=== PATIENT | female | born 1980 | race Caucasian/White ===

== ENCOUNTER → 2016-06-29 | Outpatient (CLI) | payer BC ==
[~2016-06-29] MED LIST: ASCO10003 PO; COLE1TAB4 PO; PRENTAB26 PO
== END | disposition home or self-care (01) ==
LOC: C.PAPS 08:11
PROVIDERS: ATTEND Obstetrics & Gynecology
DX: Z01.419 Encounter for gynecological examination (general) (routine) without abnormal findings (principal)

== ENCOUNTER → 2017-07-29 | Outpatient (CLI) | payer BC | END | disposition home or self-care (01) | LOC: C.PAPS 11:25 | PROVIDERS: ATTEND Obstetrics & Gynecology | DX: Z01.419 Encounter for gynecological examination (general) (routine) without abnormal findings (principal) ==

== ENCOUNTER 2018-11-14 22:42 | Inpatient (IN) ==
[2018-11-15] MEDS ORDERED: OXYTOCIN 30 UNITS/500 ML BAG IV PRN (01:58)
--- NOTE | 2018-11-15 02:02 | Labor Progress Brief Note ---
Date of Service November 15, 2018 Subjective Reason For Note: Routine Evaluation Breathing through Contractions Assessment & Plan (1) Leakage, amniotic fluid: Patient with painful contractions, cervical change, and SROM confirmed by MD exam. Admit for labor. See recent OB notes, patient NOT considered cHTN. Present on Admission?: Yes Physical Exam Genitourinary: Manual OB Exam: + cervical dilation 4 cm, + cervical effacement 90%, + station -2 and + amniotic fluid clear OB Exam Monitor Tracing: + external FHT monitor used, + external uterine monitor used and + category I Results & Data Vital Signs (Past 12 Hours) Vital Signs Temp Pulse Resp BP 11/15/18 01:55 87 135/81 11/14/18 22:59 98.4 F 96 H 18 151/82 H 11/14/18 22:58 98.4 F 97 H 18 157/91 H
[2018-11-15] MEDS: LACTATED RINGER'S 1,000 ML IV PRN ×2 (02:04→03:06)
[2018-11-15] MEDS ORDERED: ePHEDrine sulfate 50 MG/ML AMP ONE (02:12)
[2018-11-15] MEDS ORDERED: BUPIVACAINE 0.25% 30 ML VIAL ONE (02:12)
[2018-11-15] MEDS ORDERED: fentaNYL citrate 100 MCG/2 ML VIAL ONE (02:13)
[2018-11-15] MEDS ORDERED: fentaNYL 2MCG/ML ROPIV 1.25MG/ML 100 ML BAG EPI ONE (02:14)
[2018-11-15 02:32] LABS: Hematocrit (blood only) 37.6 % (37-47); Hemoglobin 12.8 g/dL (12.0-16.0); Mean Corpuscular Volume 89.1 fL (80-100); Mean Platelet Volume 12.9 fL (7.4-10.4); Platelet Count 141 K/uL (130-400); RDW Coefficient of Variation 13.2 % (11.5-14.5); Red Blood Count 4.22 M/uL (4.2-5.4); White Blood Count 13.25 K/uL (4.8-10.8)
[2018-11-15] MEDS ORDERED: ONDANSETRON INJ 2 MG/ML 2 ML VIAL IV PRN (02:42)
[2018-11-15] MEDS ORDERED: NALOXONE HCL 1 MG in SODIUM CHLORIDE 0.9% 1000ML 1,000 ML IV PRN (02:42)
[2018-11-15] MEDS ORDERED: NALBUPHINE HCL INJ 10 MG/ML AMP IV PRN (02:42)
[2018-11-15] MEDS ORDERED: DiphenhydrAMINE HCL 50 MG/ML VIAL IV PRN (02:42)
[2018-11-15] MEDS ORDERED: ePHEDrine sulfate 50 MG/ML AMP IV PRN (02:42)
[2018-11-15] MEDS ORDERED: NALOXONE HCL 0.4 MG/1 ML VIAL/CARP IV PRN (02:42)
[2018-11-15] MEDS ORDERED: fentaNYL 2MCG/ML ROPIV 1.25MG/ML 100 ML BAG EPI PRN (02:42)
--- NOTE | 2018-11-15 02:45 | Anesthesiology Consultation ---
Date of Service November 15, 2018 Assessment & Plan Chart Review Chart Review: Patient NOT seen in Pre Admission Testing and Acceptable Risk for Labor Epidural Consults Requested none ASA ASA2 Proposed Anesthesia Anesthesia Type: Labor Epidural and CSE Risk / Benefits Reviewed With: PT / POA / Parent / Guardian, Accepts Plan and Informed Consent Obtained History Height/Weight Height: 5 ft 3 in Weight: 103.419 kg Allergies Allergy/AdvReac Type Severity Reaction Status Date / Time No Known Drug Allergies Allergy Verified 11/13/18 14:54 Medications Home Medications Medication Instructions Recorded Confirmed Last Taken ascorbic acid (vitamin C) 1,000 mg 1 gm PO Q6H 11/06/18 11/14/18 11/14/18 tablet aspirin 81 mg tablet,delayed 81 mg PO DAILY 11/06/18 11/14/18 11/14/18 release buspirone 5 mg tablet 5 mg PO BID 11/06/18 11/14/18 11/14/18 colestipol 1 gram tablet 1 gm PO BID 11/06/18 11/14/18 11/13/18 1 tab PO DAILY 11/06/18 11/14/18 11/14/18 vitamin,calcium,zgktming-hops-ljlli acid tablet sertraline 50 mg tablet 50 mg PO DAILY 11/06/18 11/14/18 11/14/18 Active Medications Generic Name Dose Route Start Last Admin Trade Name Freq PRN Reason Stop Dose Admin Lactated Ringer's 1,000 mls @ 125 mls/hr 11/15/18 01:58 11/15/18 02:04 Lr IV 11/17/18 01:57 999 mls/hr .Q8H PRN Administration L&D Protocol Protocol NPO Date Last Intake of Fluids: 11/15/18 Time Last Intake of Fluids: 01:00 Date Last Intake of Solids: 11/14/18 Time Last Intake of Solids: 19:00 Past Medical History Medical History Functional murmur History of pleurisy History of syncope Exercise / Class Metabolic Activity II 4-5 Yardwork/Stairs/Walk up hill Past Family History Family History Mother Hypertension Father Benign neoplasm of brain Other Depression Dyslipidemia Kidney disease Past Surgical History Surgical History History of colposcopy History of dental surgery Past Anesthesia History No Hx of Anesthesia Complications and No Family Hx of Anesthesia Complications History of PONV No Hx of PONV and No Hx of Motion Sickness Social History Smoking Status: Never smoker Hx Alcohol Use: No Hx Substance Use: No Review of Systems no chest pain or sob Physical Exam Vital Signs Last Vital Signs Temp 36.4 C L 11/15/18 02:30 Pulse 87 11/15/18 01:55 Resp 18 11/15/18 02:30 BP 135/81 11/15/18 01:55 ENMT Mouth: no TMJ abnormality Thyromental Distance: > or= 3.5 Finger Breadths Mallampati Class: II Neck normal visual inspection Respiratory normal respiratory effort Auscultation: lungs clear to auscultation bilaterally Cardiovascular Rate/Rhythm: regular rate and regular rhythm Musculoskeletal Spine: normal cervical ROM Neurologic moves all extremities Psychiatric Orientation: alert and oriented x 3 Testing Laboratory Results 11/15/18 02:21
[2018-11-15] MEDS ORDERED: DIPHTHERIA/TETANUS/PERTUSSIS 0.5 ML SYR/VIAL IM ONE (05:19)
[2018-11-15] MEDS ORDERED: SUPERCREAM 0.870% 15 GM JAR EXT PRN (05:19)
[2018-11-15] MEDS ORDERED: HYDROCORTISONE ACETATE 25 MG SUPP PR PRN (05:19)
[2018-11-15] MEDS ORDERED: BENZOCAINE 20% AER SPR 82.5 GM CAN EXT PRN (05:19)
[2018-11-15] MEDS ORDERED: IBUPROFEN 600 MG TAB PO ONE (05:26)
--- NOTE | 2018-11-15 06:40 | History & Physical Report ---
Date of Service November 15, 2018 Assessment & Plan (1) : (2) Spontaneous rupture of membranes: patient with SROM and regular contractions occurring 1-3 minutes apart; at 4cm dilation. EFM in place. anesthesia consulted, epidural placed. Anticipate . History of Present Illness Primary Care Provider: Carlota Leonardo PA-C Marlen is a 37 yo at 38w 5d dating parameters (via LMP) who presented to l&d for spontaneous rupture of membranes. This is complicated by advanced maternal age and LGA of the fetus. There was also a question of cHTN, which was felt to be likely not valid. Marlen has been attending her OB appointments with [facility]. During this , she took a vitamin, sertraline, buspar, and a daily baby ASA (for the questionable cHTN). + Contractions + Movement. +fluid loss. - Vaginal blood loss. Labs - Blood type: AB + - Antibody screen: - - H.9 - Hct: 40.0 - Plt: 264 - Rubella: immune - VDRL/RPR: non-reactive - Gonorrhea: - - Chlamydia: - - HIV: - - HbSAg: - - GBS: - - Glucose tolerance x 2: wnl Allergies Allergy/AdvReac Type Severity Reaction Status Date / Time No Known Drug Allergies Allergy Verified 11/13/18 14:54 Home Medications Home Medications Medication Instructions Recorded Confirmed Type ascorbic acid (vitamin C) 1,000 mg 1 gm PO Q6H 11/06/18 11/14/18 History tablet aspirin 81 mg tablet,delayed 81 mg PO DAILY 11/06/18 11/14/18 History release buspirone 5 mg tablet 5 mg PO BID 11/06/18 11/14/18 History colestipol 1 gram tablet 1 gm PO BID 11/06/18 11/14/18 History 1 tab PO DAILY 11/06/18 11/14/18 History vitamin,calcium,saegvndy-ihsu-zqsel acid tablet sertraline 50 mg tablet 50 mg PO DAILY 11/06/18 11/14/18 History Patient History Medical History Functional murmur History of pleurisy History of syncope Surgical History History of colposcopy History of dental surgery Family History Mother Hypertension Father Benign neoplasm of brain Other Depression Dyslipidemia Kidney disease Social History Preferred Language: Azeri Communication Ability: Effective Press Supervisor Required: No Beliefs That Will Affect Care: None marital status: Current Living Situation: Family Other Information That Helps Us Care for You: No Feels Safe at Home: Yes Safety Concerns: Feels Safe At This Time Smoking Status: Never smoker Second Hand Exposure: No ; Hx Alcohol Use: No Hx Substance Use: No Review of Systems HEENT: No headache or blurry vision CV: No chest pain Lungs: No SOB or cough GI: No abdominal pain, constipation/diarrhea, nausea/vomiting : No dysuria or burning with urination Physical Exam Physical Exam: General: Alert, oriented. No acute distress. Cardiac: Regular rate and rhythm, S1 and S2 appreciated. No murmurs/rubs/gallops. Respiratory: Clear to auscultation anterior and posteriorly, no wheezes/rales/rhonchi/crackles. No accessory muscle use. Symmetrical chest rise. Abdomen: Soft, nontender, nondistended. Normoactive bowel sounds throughout. Uterus: gravid Cervical exam [4 cm, 90% effacement, -2 station] Lower Extremities: No lower extremity edema. No calf pain on compression. Results & Data Vital Signs (Past 12 Hours) Vital Signs Temp Pulse Resp BP Pulse Ox 11/15/18 06:32 94 H 126/74 11/15/18 06:25 36.9 C 18 11/15/18 06:17 93 H 124/73 11/15/18 05:55 18 11/15/18 05:47 92 H 143/68 H 11/15/18 05:40 18 11/15/18 05:32 92 H 143/69 H 11/15/18 05:29 94 H 168/79 H 11/15/18 05:25 18 11/15/18 05:17 98 H 167/78 H 11/15/18 05:10 18 11/15/18 05:09 99 H 166/68 H 11/15/18 05:02 102 H 170/78 H 11/15/18 04:55 36.8 C 18 11/15/18 04:47 101 H 161/96 H 11/15/18 04:30 136 H 18 99 11/15/18 04:25 121 H 98 11/15/18 04:20 119 H 98 11/15/18 04:17 126 H 124/84 11/15/18 04:15 128 H 96 11/15/18 04:10 122 H 99 11/15/18 04:05 121 H 98 11/15/18 04:02 127 H 133/78 11/15/18 04:00 124 H 18 99 11/15/18 03:55 124 H 99 11/15/18 03:50 114 H 98 11/15/18 03:45 116 H 18 99 11/15/18 03:44 113 H 133/60 11/15/18 03:40 110 H 98 11/15/18 03:37 115 H 115/50 L 11/15/18 03:35 119 H 100 11/15/18 03:32 117 H 106/52 L 11/15/18 03:30 120 H 18 99 11/15/18 03:27 110 H 119/54 L 11/15/18 03:25 114 H 18 99 11/15/18 03:22 107 H 109/56 L 11/15/18 03:20 114 H 18 103/56 L 98 11/15/18 03:15 112 H 18 97 11/15/18 03:13 111 H 94 11/15/18 03:12 112 H 93/55 L 11/15/18 03:10 103 H 18 96 11/15/18 03:07 18 11/15/18 03:05 112 H 18 92 11/15/18 03:04 111 H 92 11/15/18 03:02 18 11/15/18 03:01 99 H 128/66 11/15/18 03:00 102 H 18 99 11/15/18 02:59 92 H 132/67 11/15/18 02:56 93 H 133/72 11/15/18 02:55 91 H 99 11/15/18 02:50 89 100 11/15/18 02:45 83 99 11/15/18 02:30 36.4 C L 18 11/15/18 02:00 18 11/15/18 01:55 87 135/81 11/14/18 22:59 36.9 C 96 H 18 151/82 H 11/14/18 22:58 36.9 C 97 H 18 157/91 H Code Status & VTE Plan VTE Prophylaxis Plan VTE Prophylaxis will be ordered: Yes Monitoring External Monitor [moderate variability, accels: 15X15, decels: some variable, baseline HR 155] Tocodynamometer contractions 1-3 min apart Supervising Physician Co-Signing Physician Notes I have reviewed the resident's note and examined the patient myself, and agree with the note above. Resident Activity Tracking Resident Involvement: Resident Care Provided Care Provided: Adult Hospital Medicine
--- NOTE | 2018-11-15 07:13 | Anesthesia Procedure Note ---
Date of Service November 15, 2018 Anesthesia Post Epidural Note Vital Signs Vital Signs: Temp Pulse Resp BP Pulse Ox 36.9 C 96 H 18 125/61 99 11/15/18 06:25 11/15/18 07:00 11/15/18 06:55 11/15/18 07:00 11/15/18 04:30 Pain Intensity Vaginal: Pain Intensity: 5 Notes Mental Status: alert / awake / arousable and participated in evaluation Nausea / Vomiting: adequately controlled Pain: adequately controlled Airway Patency, RR, SpO2: stable & adequate BP & HR: stable & adequate Hydration State: stable & adequate Neuraxial Anesthesia: was administered and sensory block is resolving Anesthetic Complications: no major complications apparent and Pt Satisfied with anesthetic care Epidural: Removed without complications and With tip intact Notes: Epidural site clean, dry and intact. No signs of edema, erythema or bruising at insertion site. Pt instructed to request anesthesia if she has residual lower extremity numbness or if she develops lower extremity pain or weakness, back pain or headache.
[2018-11-15] MEDS: PRENATAL VITAMIN 1 TAB PO SCH (07:40)
[2018-11-15] MEDS: DOCUSATE SODIUM 100 MG CAP PO SCH ×2 (07:40→20:29)
--- NOTE | 2018-11-15 08:02 | Delivery Summary ---
Vaginal Delivery Summary Date of Service November 15, 2018 Vaginal Delivery Summary DIAGNOSES: 1. Will intrauterine at 39wk gestation. 2. Spontaneous onset of labor. 3. Group B Streptococcus Neg. PROCEDURE: Spontaneous vaginal delivery, removal of 3cm protuberant cyst at hymenal ring. SURGEON: Kell Leung MD. SERVICE OBSERVER CHIEF: None. ESTIMATED BLOOD LOSS: 350 mL. COMPLICATIONS: None. PLACENTA: Spontaneous and intact with a 3-vessel cord. DISPOSITION: Stable to labor and delivery. DESCRIPTION: The patient pushed well and brought the head to in JOE position. The head delivered with several additional pushes, and I notified the nurse that I anticipated a possible dystocia. Help was summoned. Upon complete delivery of the head, There was no nuchal cord. The right shoulder was anterior. Deborah, Suprapubic pressure, and multiple maternal pushing efforts were required to effect delivery of the shoulders. The infant was placed on the maternal abdomen. The cord was doubly clamped by the MD and then cut by the FOB. The infant was moved directly to the warmer for care; see nursery documentation for details. The placenta delivered spontaneously and was noted to be intact and with a 3VC. The cervix, vagina and perineum were examined and were found to be without defect requiring repair. There was a known 3cm cyst filled with a yellowish substance which was sharply excised and sent for pathology; the area at 6 oclock where it was attached was then closed with a 3-0 vicryl suture for hemostasis. The fundus was firm and lochia minimal immediately after delivery.
[2018-11-15] MEDS: SERTRALINE HCL 50 MG TABLET PO SCH (08:38)
[2018-11-15] MEDS: IBUPROFEN 600 MG TAB PO PRN ×3 (11:33→20:30)
[2018-11-15] MEDS: ACETAMINOPHEN 325 MG TAB PO PRN ×2 (13:41→21:44)
[2018-11-15] MEDS ORDERED: ONDANSETRON 4 MG OD TAB PO STA (20:19)
[2018-11-15] MEDS ORDERED: ONDANSETRON 4 MG TAB PO ONE (20:20)
[2018-11-16] MEDS: IBUPROFEN 600 MG TAB PO PRN ×4 (04:06→22:59)
--- NOTE | 2018-11-16 06:19 | Obstetrical Progress Note ---
Date of Service <Kristen Garcia MD - Last Filed: 11/16/18 07:28> November 16, 2018 Assessment & Plan <Kristen Garcia MD - Last Filed: 11/16/18 07:28> (1) : (2) Spontaneous rupture of membranes: (3) Status post vaginal delivery: Marlen is a 37 yo on PPD 1 of - GBS -, Rh +, Rubella immune -Vitals reviewed: BP as high as 161/94 overnight, down to 136/79 now. will continue to monitor -Hemoglobin reviewed: 12.8 on admission, 11.5 today -patient is clinically improving but in a good deal of discomfort. We will continue to closely monitor her blood pressures today. ROS and exam not suggestive of pre-eclampsia at this time. encourage ambulation, provide analgesia as needed, monitor lochia - After discharge will have [address] Leung_. Subjective <Kristen Garcia MD - Last Filed: 11/16/18 07:28> Ambulation: ambulating normally Voiding: no voiding problems Passing Gas:: Yes Diet Tolerance:: regular diet Lochia:: Moderate Feeding Type:: bottle feeding Current Pain Level(1-10): 6 examined at bedside; experiences chills prior to transitioning positions (supine to sitting); most pain is located in R pelvic region. Denies vision changes and headaches. Physical Exam <Kristen Garcia MD - Last Filed: 11/16/18 07:28> General Appearance: Alert, oriented. No acute distress. Cardiac: Regular rate and rhythm, S1 and S2 appreciated. systolic ejection murmur 2/6 appreciated in aortic area. Respiratory: Clear to auscultation anterior and posteriorly, no wheezes/rales/rhonchi/crackles. No accessory muscle use. Symmetrical chest rise. Abdomen: Soft, nontender, nondistended. Normoactive bowel sounds throughout. Uterus: Uterine fundus firm, palpable 1 cm below umbilicus. Lower Extremities: No lower extremity edema. No calf pain on compression. Neuro: Patellar Reflexes +2 and symmetric bilaterally; no clonus (performed by attending). Results & Data <Kristen Garcia MD - Last Filed: 11/16/18 07:28> Vital Signs (Past 12 Hours) Vital Signs Temp Pulse Resp BP Pulse Ox 11/16/18 03:50 37.4 C 104 H 18 136/79 98 11/16/18 00:05 36.6 C 95 H 16 111/74 97 <Jessica Hills MD, FACOG - Last Filed: 11/16/18 07:47> Co-Signing Physician Notes Resident Physician Supervision Note: I interviewed and examined the patient. Discussed with Dr. Garcia and agree with findings and plan as documented in the note. Any exceptions or clarifications are listed here: Elevated pressures noted, no s/s of pet. Will need to monitor throughout the day. Suspect her rlq discomfort is secondary to manipulation for resolution of shoulder dystocia. Documented By: Jessica Hills MD, FACOG Resident Activity Tracking <Kristen Garcia MD - Last Filed: 11/16/18 07:28> Resident Involvement: Resident Care Provided Care Provided: Adult Hospital Medicine
[2018-11-16 06:56] LABS: Hematocrit (blood only) 33.6 % (37-47); Hemoglobin 11.5 g/dL (12.0-16.0); Mean Corpuscular Hgb Conc 34.2 g/dL (32-36); Mean Corpuscular Volume 90.1 fL (80-100); Mean Platelet Volume 12.9 fL (7.4-10.4); Platelet Count 90 K/uL (130-400); RDW Coefficient of Variation 13.5 % (11.5-14.5); RDW Standard Deviation 44.6 fL (36.4-46.3); Red Blood Count 3.73 M/uL (4.2-5.4); White Blood Count 13.86 K/uL (4.8-10.8)
[2018-11-16 06:57] LABS: Platelet Estimate Decreased (Normal)
[2018-11-16] MEDS: PRENATAL VITAMIN 1 TAB PO SCH (08:17)
[2018-11-16] MEDS: OXYCODONE/ACETAMINOPHEN 5mg/325mg TAB PO PRN ×3 (08:17→22:59)
[2018-11-16] MEDS: SERTRALINE HCL 50 MG TABLET PO SCH (08:18)
[2018-11-16] MEDS: DOCUSATE SODIUM 100 MG CAP PO SCH ×2 (08:18→20:24)
[2018-11-17 06:36] LABS: Hematocrit (blood only) 38.3 % (37-47); Mean Corpuscular Hgb Conc 33.9 g/dL (32-36); Mean Corpuscular Volume 91.6 fL (80-100); Mean Platelet Volume 12.8 fL (7.4-10.4); Platelet Count 110 K/uL (130-400); RDW Coefficient of Variation 13.8 % (11.5-14.5); RDW Standard Deviation 45.3 fL (36.4-46.3); Red Blood Count 4.18 M/uL (4.2-5.4); White Blood Count 9.59 K/uL (4.8-10.8)
--- NOTE | 2018-11-17 06:44 | Obstetrical Progress Note ---
Date of Service <Kristen Garcia MD - Last Filed: 11/17/18 07:18> November 17, 2018 Assessment & Plan <Kristen Garcia MD - Last Filed: 11/17/18 07:18> (1) Status post vaginal delivery: Marlen is a 37 yo on PPD 2 of - GBS -, Rh +, Rubella immune -Vitals reviewed: BP improved to 102/68; no hypertensive readings overnight -patient is afebrile; WBC count 9.59 today -patient is clinically improving but in a good deal of discomfort. It appears as though patient's BP has lowered to a normal range. She did experience a OLIVAREZ last night but it resolved with sleep. She complains of RLQ pain worsened by movement, although this is not reproducible on exam. This likely corresponds to suprapubic pressure that was applied during delivery complicated by shoulder dystocia. Given normalization of BPs, suspicion for pre-eclampsia is low at this time. Given patient is afebrile and WBC WNL, chills/sweats likely represent hormonal flucutuations. discharge instructions reviewed. Patient encouraged to schedule appointment for BP check in office 1 week from today. - After discharge will have [address] Leung_. Subjective <Kristen Garcia MD - Last Filed: 11/17/18 07:18> Ambulation: ambulating normally (at times requires assistance with stability when she gets shaky ) Voiding: no voiding problems (patient describes discomfort as bladder empties when she urinates) Passing Gas:: Yes Diet Tolerance:: regular diet Lochia:: Moderate Feeding Type:: bottle feeding Current Pain Level(1-10): 2 examined at bedside; reports a OLIVAREZ overnight that resolved with sleep; denies blurry vision; complains of feeling chilly followed by sweats; note that room temperature is cool Physical Exam <Kristen Garcia MD - Last Filed: 11/17/18 07:18> General Appearance: Alert, oriented. bilateral upper and lower extremity shaking Cardiac: Regular rate and rhythm, S1 and S2 appreciated. +1/6 systolic ejection murmur appreciated in aortic area Respiratory: Clear to auscultation anterior and posteriorly, no wheezes/rales/rhonchi/crackles. No accessory muscle use. Symmetrical chest rise. Abdomen: soft; non-tender. Normoactive bowel sounds throughout. Uterus: Uterine fundus firm, palpable 1 cm below umbilicus. Lower Extremities: No lower extremity edema. No calf pain on compression. Results & Data <Kristen Garcia MD - Last Filed: 11/17/18 07:18> Vital Signs (Past 12 Hours) Vital Signs Temp Pulse Resp BP Pulse Ox 11/17/18 03:17 36.5 C 81 16 102/68 97 11/16/18 23:03 37.2 C 95 H 18 103/68 98 11/16/18 20:02 37.1 C 98 H 18 111/74 97 <Poornima Lara MD, FACOG - Last Filed: 11/17/18 07:34> Co-Signing Physician Notes Resident Physician Supervision Note: I was present with Dr. Garcia during the history and exam. I discussed the case with the resident and agree with the findings and plan as documented in the note. Any exceptions or clarifications are listed here: pt will some musculoskel pain on right side, hurts with moving. she did have shoulder dystocia. eating, drinking, jesenia po, voiding. no cp/sob/n/v. no bleeding issues. wbc resolved to nl this am. i do not see fever. she notes chills on and off but resolve spont. ok for d/c home. rec bp check in one wk. routine instructions reviewed. f/u routine 6wk check up as well. Documented By: Poornima Lara MD, FACOG Resident Activity Tracking <Kristen Garcia MD - Last Filed: 11/17/18 07:18> Resident Involvement: Resident Care Provided Care Provided: OB Delivery
[2018-11-17 07:01] LABS: Basophils # (auto) 0.01 K/uL (0-0.2); Basophils % (auto) 0.1 %; Echinocytes 3+; Eosinophils # (auto) 0.04 K/uL (0-0.5); Eosinophils % (auto) 0.4 %; Immature Granulocytes # (auto) 0.06 K/uL (0.00-0.02); Immature Granulocytes % (auto) 0.6 %; Lymphocytes % (auto) 4.2 %; Monocytes # (auto) 0.27 K/uL (0.11-0.59); Monocytes % (auto) 2.8 %; Neutrophils # (auto) 8.81 K/uL (1.4-6.5); Neutrophils % (auto) 91.9 %
[2018-11-17] MEDS: OXYCODONE/ACETAMINOPHEN 5mg/325mg TAB PO PRN ×3 (08:03→18:30)
[2018-11-17] MEDS: DOCUSATE SODIUM 100 MG CAP PO SCH (08:04)
[2018-11-17] MEDS: IBUPROFEN 600 MG TAB PO PRN ×3 (08:04→18:30)
[2018-11-17] MEDS: PRENATAL VITAMIN 1 TAB PO SCH (08:04)
[2018-11-17] MEDS: SERTRALINE HCL 50 MG TABLET PO SCH (08:39)
== END 2018-11-17 19:40 | disposition home or self-care (01) | DRG 768 ==
LOC: OPB 22:42 → 4S1 22:43 → 4S2 11-15 07:56